=== PATIENT | male | born 1985 | race Caucasian/White ===

== ENCOUNTER → 2017-03-06 | Emergency (ER) | payer BC ==
[~2017-03-06] VITALS: Ht 175.3 cm; Wt 82.6 kg
[~2017-03-06] MED LIST: AMOX1TAB12 PO; CEPH-507 PO; OMEP20CA12 PO; PRED20TA PO
--- OUTSIDE RECORDS SUMMARY | 2017-03-06 14:26 | XMS REPORT | Continuity of Care Document ---
Author Author [facility] Address Unknown Phone Unavailable Allergies Medications Problems Date Dx Coded Attending Type Code Diagnosis Diagnosed By 04/07/2016 Ot 729.5 PAIN IN LIMB 04/07/2016 Ot 729.81 SWELLING OF LIMB 04/09/2016 CHAO LEWIS Ot R21 RASH AND OTHER NONSPECIFIC SKIN ERUPTION 10/29/2016 CHAO LEWIS Ot J01.00 ACUTE MAXILLARY SINUSITIS, UNSPECIFIED 01/22/2017 CHAO LEWIS Ot J01.00 ACUTE MAXILLARY SINUSITIS, UNSPECIFIED Procedures Results Encounters ACCT No. Visit Date/Time Discharge Status Pt. Type Provider Facility Loc./Unit Complaint [id number] 06/16/2013 13:34:00 2012 23:59:59 CLS Outpatient [id number] 10/23/2016 12:18:00 ACT Outpatient CHAO LEWIS [facility] [id number] 04/07/2016 11:40:00 ACT Outpatient CHAO LEWIS [facility] [id number] 02/07/2013 11:08:00 Document Registration
[2017-03-06 14:30] VITALS: BP 152/103
--- NOTE | 2017-03-06 15:14 | Diagnostic Imaging Report ---
INDICATION: Chest pain. PA and lateral chest. FINDINGS: Heart size and pulmonary vascularity are normal. Lungs are clear. There are no effusions or pneumothoraces. IMPRESSION: Negative chest. Dictated by: Dictated on workstation # [id number]
[2017-03-06 15:19] LABS: BASOPHILS % (AUTO) 0 % (0-2); EOSINOPHILS % (AUTO) 0 % (0-4); LYMPHOCYTES # (AUTO) 1.1 X10^3; MEAN CORPUSCULAR HEMOGLOBIN 30.8 PG (26.0-34.0); MEAN CORPUSCULAR HGB CONC 34.5 g/dL (31.0-37.0); MEAN CORPUSCULAR VOLUME 89 FL (80-100); MEAN PLATELET VOLUME 10.2 FL (6.0-9.5); MONOCYTES # (AUTO) 0.7 X10^3; MONOCYTES % (AUTO) 7 % (3-11); NEUTROPHILS % (AUTO) 83 % (51-67); PLATELET COUNT 217 10^3uL (150-450); WHITE BLOOD COUNT 10.82 10^3uL (4.0-11.0)
[2017-03-06 15:29] LABS: BILIRUBIN,URINE Negative (Negative); CLARITY,URINE Clear; COLOR,URINE Yellow; GLUCOSE, URINE (UA) Negative (Negative); LEUKOCYTE ESTERASE ,URINE Negative (Negative); PH,URINE 8.5 (5.0 - 8.0)
[2017-03-06 15:32] LABS: ALBUMIN 4.5 g/dL (3.4-5.0); ALKALINE PHOSPHATASE 97 U/L (38-126); ANION GAP 15.5 MEQ/L (3-15); BUN/CREATININE RATIO 16 (10-20); CALCULATED IONIZED CALCIUM 3.8 mg/dL (3.8-4.6); CREATINE KINASE 105 U/L (55-170); TOTAL PROTEIN 7.9 g/dL (6.4-8.5)
[2017-03-06 15:36] LABS: AMPHETAMINE SCREEN, URINE Negative (Negative); CANNABINOID SCREEN, URINE Negative (Negative); METHAMPHETAMINE SCREEN URINE S NEGATIVE (NEGATIVE); OPIATE SCREEN URINE Negative (Negative); PROPOXYPHENE STAT NEGATIVE (NEGATIVE)
== END | disposition home or self-care (01) ==
LOC: ED 14:25
DX: E02 Subclinical iodine-deficiency hypothyroidism (principal); R07.89 Other chest pain; M79.1 Myalgia; F17.210 Nicotine dependence, cigarettes, uncomplicated
CPT/HCPCS: 36415; 71020; 80053; 80307; 81003; 82550; 82553; 83880; 84439; 84443; 84484; 85025; 85379; 86140; 93005; 93010; 99283; 99285